=== PATIENT | female | born 1980 | race Hispanic/Latino ===

== ENCOUNTER 2018-02-10 17:48 | Inpatient (IN) | payer OTHER ==
[2018-02-10 17:50] VITALS: BMI 23.0
--- NOTE | 2018-02-10 18:17 | ED PDOC ---
Arrival/HPI - General Chief Complaint: Altered Mental Status Time Seen by Provider: 02/10/18 17:52 Historian: Patient - History of Present Illness Narrative History of Present Illness (Text): 02/10/18 18:00 Zenobia Pisano is a 37 year old female brought in by EMS, whose past medical history includes celiac disease on Prednisone and diabetes on insulin, who presents to the emergency department complaining of a witnessed seizure-like episode prior to arrival. As per patient's [id number], patient was speaking to her when patient suddenly screamed in pain, her hands began to shake, her body went stiff, and then lost consciousness. Patient notes that felt something occurred prior to losing consciousness but is unsure what. Patient notes that she has been feeling depressed after her girlfriend broke up with her one week ago. Patient denies taking any other medication today besides Prednisone and insulin. Patient denies any headache, body aches, fever, chills, urinary symptoms, or any other complaints at this time. Time/Duration: Prior to Arrival Symptom Onset: Sudden Symptom Course: Improving Activities at Onset: Light Context: Home Past Medical History - Provider Review Nursing Documentation Reviewed: Yes - Infectious Disease Hx of Infectious Diseases: None - Endocrine/Metabolic Hx Diabetes Mellitus Type 1: Yes - Gastrointestinal Other/Comment: Celiac dx - Psychiatric Hx Substance Use: Yes - Anesthesia Hx Anesthesia: No Family/Social History - Physician Review Nursing Documentation Reviewed: Yes Family/Social History: No Known Family HX Smoking Status: Heavy Smoker > 10 Cigarettes Daily Hx Alcohol Use: No Hx Substance Use: Yes Allergies/Home Meds Allergies/Adverse Reactions: Allergies levofloxacin [From Levaquin] Allergy (Verified 02/10/18 17:59) RASH Penicillins Allergy (Verified 02/10/18 17:59) RASH Home Medications: Home Meds Medication Instructions Recorded Confirmed No Known Home Med 02/10/18 02/10/18 Review of Systems - Physician Review All systems were reviewed & negative as marked: Yes - Review of Systems Constitutional: absent: Fevers, Night Sweats Eyes: absent: Vision Changes ENT: absent: Hearing Changes Respiratory: absent: SOB Cardiovascular: absent: Chest Pain Gastrointestinal: absent: Abdominal Pain Genitourinary Female: absent: Dysuria Musculoskeletal: absent: Arthralgias Skin: absent: Rash, Pruritis Neurological: Seizure. absent: Headache Endocrine: absent: Diaphoresis Hemo/Lymphatic: absent: Adenopathy Psychiatric: Depression. absent: Anxiety Physical Exam Vital Signs Reviewed: Yes Vital Signs Temp Pulse Resp BP Pulse Ox 02/10/18 21:29 76 18 110/81 98 02/10/18 19:17 98.4 F 100 H 18 105/72 98 - Systems Exam Head: Present: Atraumatic, Normocephalic Pupils: Present: PERRL Extroacular Muscles: Present: EOMI Conjunctiva: Present: Normal Mouth: Present: Moist Mucous Membranes. No: Normal Lips (Dry lips) Neck: Present: Normal Range of Motion Respiratory/Chest: Present: Clear to Auscultation, Good Air Exchange. No: Respiratory Distress, Accessory Muscle Use Cardiovascular: Present: Regular Rate and Rhythm, Normal S1, S2. No: Murmurs Abdomen: Present: Normal Bowel Sounds. No: Tenderness, Distention, Peritoneal Signs Rectal: No: Other (No evidence of incontinence) Back: Present: Normal Inspection Upper Extremity: Present: Normal Inspection. No: Cyanosis, Edema Lower Extremity: Present: Normal Inspection. No: Edema Neurological: Present: GCS=15, CN II-XII Intact, Speech Normal, Motor Func Grossly Intact, Normal Sensory Function, Normal Cerebellar Funct, Norm Deep Tendon Reflexes, Gait Normal, Memory Normal, Normal 2Pt Descrimination Skin: Present: Warm, Dry, Normal Color. No: Rashes Psychiatric: Present: Alert, Oriented x 3, Normal Insight, Normal Concentration Medical Decision Making ED Course and Treatment: 02/10/18 18:19 Impression: 37 year old female complaining of a witnessed seizure-like episode prior to arrival. Differential Diagnosis included but are not limited to: New Onset Seizure Plan: -- EKG -- Chest X-ray -- Head CT w/o contrast -- Blood Culture -- Urinalysis and Urine Culture -- Labs -- Reassess and disposition Progress Notes: EKG: Ordered, reviewed, and independently interpreted the EKG. Rate : 100 BPM Rhythm : NSR Interpretation : No ST-segment elevations or depressions, no T-wave inversions, normal intervals. Comparison : No previous EKG for comparison. 02/10/18 21:31 CT Scan HEAD W/O CONTRAST Exam Date: 02/10/18 IMPRESSION: No acute intracranial abnormality Dictated By: Miri Dawn MD Case discussed with Dr. Argueta, Neurologist, who recommends Keppra IV and an MRI on admission. 02/10/18 21:[address] Mao, house physician, who will admit to the hospitalist service. - Critical Care Critical Care Minutes: 30 minutes - Lab Interpretations Lab Results: 02/10/18 18:30 02/10/18 18:30 Lab Results 02/10/18 19:12: POC Glucose (mg/dL) 107 02/10/18 18:50: Urine Opiates Screen Positive H, Urine Methadone Screen Negative , Ur Barbiturates Screen Negative, Ur Phencyclidine Scrn Negative, Ur Amphetamines Screen Negative, U Benzodiazepines Scrn Positive, U Oth Cocaine Metabols Negative, U Cannabinoids Screen Negative 02/10/18 18:50: Urine Color Yellow, Urine Appearance Clear, Urine pH 6.0, Ur Specific [place] >= 1.030, Urine Protein Trace H, Urine Glucose (UA) 100 H, Urine Ketones Negative, Urine Blood Negative, Urine Nitrate Negative, Urine Bilirubin Negative, Urine Urobilinogen 4.0 H, Ur Leukocyte Esterase Negative, Urine RBC 0 - 2, Urine WBC 0 - 2, Ur Epithelial Cells 1 - 3, Urine Bacteria Small 02/10/18 18:30: Salicylates < 1 L, Acetaminophen < 10.0 L 02/10/18 18:30: Alcohol, Quantitative < 10 02/10/18 18:30: Sodium 138, Potassium 3.6, Chloride 107, Carbon Dioxide 22, Anion Gap 12, BUN 8, Creatinine 0.6 L, Est GFR ( Amer) > 60, Est GFR (Non -Af Amer) > 60, Random Glucose 141 H, Calcium 9.5, Phosphorus 2.7, Magnesium 2.0 , Total Bilirubin 1.4 H, AST 151 H, ALT 84 H, Alkaline Phosphatase 278 H, Total Protein 7.0, Albumin 3.7, Globulin 3.3, Albumin/Globulin Ratio 1.1 02/10/18 18:30: PT 11.6, INR 1.02, APTT 29.3 02/10/18 18:30: WBC 11.7 H, RBC 5.54, Hgb 16.6 H, Hct 47.4, MCV 85.6, MCH 30.0, MCHC 35.0, RDW 14.2, Plt Count 194, MPV 11.6 H, Gran % 76.1 H, Lymph % (Auto) 17.1 L, [place] % (Auto) 5.3, Eos % (Auto) 1.4 L, Baso % (Auto) 0.1, Gran # 8.93 H , Lymph # (Auto) 2.0, [place] # (Auto) 0.6, Eos # (Auto) 0.2, Baso # (Auto) 0.01 I have reviewed the lab results: Yes - RAD Interpretation Radiology Orders: 02/10/18 18:03 HEAD W/O CONTRAST [CT] Stat 02/10/18 18:04 CHEST PORTABLE [RAD] Stat - Medication Orders Current Medication Orders: Levetiracetam 1,000 mg/ Sodium (Chloride) 110 mls @ 440 mls/hr IV ONCE ONE Stop: 02/10/18 21:49 - Scribe Statement The provider has reviewed the documentation as recorded by the Ramanibgracie Norris Provider Scribe Attestation: All medical record entries made by the Scribe were at my direction and personally dictated by me. I have reviewed the chart and agree that the record accurately reflects my personal performance of the history, physical exam, medical decision making, and the department course for this patient. I have also personally directed, reviewed, and agree with the discharge instructions and disposition. Disposition/Present on Arrival - Present on Arrival Any Indicators Present on Arrival: No History of DVT/PE: No History of Uncontrolled Diabetes: No Urinary Catheter: No History of Decub. Ulcer: No History Surgical Site Infection Following: None - Disposition Have Diagnosis and Disposition been Completed?: Yes Diagnosis: Seizure Disposition: HOSPITALIZED Disposition Time: 21:38 Patient Plan: Admission Condition: FAIR Referrals: Vineet Gonzalez, [Primary Care Provider] - Follow up with primary Forms: [employer] (Malay)
[2018-02-10 18:48] LABS: BASO # 0.01 K/mm3 (0.0-2.0); BASO % 0.1 % (0.0-3.0); EOS # 0.2 (0.0-0.7); EOS % 1.4 % (1.5-5.0); GRAN # 8.93 (1.4-6.5); GRAN % 76.1 % (50.0-68.0); HEMOGLOBIN 16.6 g/dL (12.0-16.0); LYMPH % 17.1 % (22.0-35.0); MEAN CELL VOLUME 85.6 fl (80.0-105.0); MEAN PLATELET VOLUME 11.6 fl (7.0-11.0); MONO # 0.6 (0.1-0.6); MONO % 5.3 % (1.0-6.0); RBC 5.54 10^6/uL (3.5-6.1); RED CELL DISTRIBUTION WIDTH 14.2 % (11.5-14.5); WHITE BLOOD COUNT 11.7 10^3/ul (4.5-11.0)
[2018-02-10 18:54] LABS: ALB/GLOB RATIO 1.1 (1.1-1.8); ALBUMIN 3.7 g/dL (3.0-4.8); CALCIUM 9.5 mg/dL (8.4-10.5); GFR AFRICAN-AMERICAN > 60; GFR NON-AFRICAN AMERICAN > 60
[2018-02-10 18:55] LABS: ACETAMINOPHEN < 10.0 ug/ml (10.0-20.0); SALICYLATE < 1 mg/dL (2.0-20.0)
[2018-02-10 19:01] LABS: INR 1.02 (0.93-1.08); PARTIAL THROMBOPLASTIN TIME 29.3 Seconds (25.1-36.5); PROTHROMBIN TIME 11.6 SECONDS (9.4-12.5)
[2018-02-10 19:02] LABS: ALT/SGPT 84 U/L (7-56); AST/SGOT 151 U/L (14-36); BLOOD UREA NITROGEN 8 mg/dL (7-21)
[2018-02-10 19:24] LABS: URINE BILIRUBIN NEGATIVE (NEGATIVE); URINE BLOOD NEGATIVE (NEGATIVE); URINE GLUCOSE (UA) 100 mg/dL (NEGATIVE); URINE LEUKOCYTE ESTERASE NEGATIVE Leu/uL (NEGATIVE); URINE PROTEIN TRACE mg/dL (<30 mg/dL)
[2018-02-10 19:29] LABS: URINE APPEARANCE CLEAR (CLEAR); URINE COLOR YELLOW (YELLOW)
[2018-02-10 19:37] LABS: PHENCYCLIDINE, UR NEGATIVE (NEGATIVE)
[2018-02-10 19:41] LABS: BARBITURATES, UR NEGATIVE (NEGATIVE); BENZODIAZEPINES, UR POSITIVE (NEGATIVE); OPIATES, UR POSITIVE (NEGATIVE)
[2018-02-10 20:08] LABS: URINE BACTERIA SMALL (NEG); URINE RBC 0 - 2 /hpf (0-2); URINE WBC 0 - 2 /hpf (0-6)
--- NOTE | 2018-02-10 21:03 | CT ---
EXAM: CT Head Without Intravenous Contrast EXAM DATE/TIME: 02/10/2018 6:03 PM CLINICAL HISTORY: 37 years old, female; Signs and symptoms; Seziure; Additional info: New onset seizure TECHNIQUE: Axial computed tomography images of the head/brain without intravenous contrast. All CT scans at this facility use one or more dose reduction techniques, viz.: automated exposure control; ma/kV adjustment per patient size (including targeted exams where dose is matched to indication; i.e. head); or iterative reconstruction technique. Coronal and sagittal reformatted images were created and reviewed. COMPARISON: There are no prior studies for comparison. FINDINGS: Brain: Ventricles are normal in size and configuration. There is no midline shift. There are no intra-axial or extra-axial mass lesions or areas of hemorrhage. There are no abnormal fluid collections. Doshi-white differentiation is maintained. Ventricles: See above. Bones: Cranial vault is intact. Soft tissues: unremarkable Sinuses: There is no acute sinusitis. There is a retention cyst/polyp in the right maxillary sinus Orbits: Orbital contents are unremarkable. Ears and mastoids: Middle ears and mastoids are unremarkable IMPRESSION: No acute intracranial abnormality
[2018-02-10] MEDS ORDERED: levETIRAcetam 1,000 MG in Sodium Chloride 0.9% 100 ML IV ONE (21:35)
--- NOTE | 2018-02-10 22:52 | CP.PCM.HP ---
<Elder Gomez - Last Filed: 02/11/18 00:48> History of Present Illness - History of Present Illness History of Present Illness: Elder Gomez PGY1 H&P Note for Hospitalist Service cc: seizure Ms Pisano is a 37yo F with a PMH of celiac disease and DM who was brought into ED accompanied by [id number] who states that the patient had a seizure episode earlier today. The patient doesn't recall any of the events, and states that she went to sleep last night and awoke surrounded by EMS and her mother-in- law stating that she had a seizure. The patient denies any loss of bowel/ urinary control, foaming at the mouth or any tongue biting. she states that she was recently discharged on Saturday (2 days ago) from [facility] for bile duct issues and had received Dilaudid there for her pain; she states that she also had fevers/chills and felt sick during that hospitalization. The patient states that she had a prior seizure as a reaction to Levaquin. patient denies headaches, changes in vision, dizziness, chest pain, shortness of breath , abdominal pain, n/v/d, gait instability. 12- pt ROS was reviewed and is otherwise unremarkable. PMD: Dr. Huang Lockhart?, [place] PMH: as above PSH: cholecystectomy, SBO, tonsillectomy Meds: as per MAR Allergies: Levaquin and PCN SHx: +tobacco 1pk/d for 20 yrs, denies IV drug use, illicit substance abuse, ETOH; lives w/ [id number] FHx: no hx of seizures Present on Admission - Present on Admission Any Indicators Present on Admission: No Review of Systems - Review of Systems All systems: reviewed and no additional remarkable complaints except (as per HPI ) Past Patient History - Infectious Disease Hx of Infectious Diseases: None - Past Social History Smoking Status: Heavy Smoker > 10 Cigarettes Daily Alcohol: None Drugs: Prescription medications Home Situation {Lives}: With Family - CARDIAC Hx Cardiac Disorders: No - PULMONARY Hx Respiratory Disorders: No - NEUROLOGICAL Hx Seizures: Yes - HEENT Hx HEENT Problems: No - RENAL Hx Chronic Kidney Disease: No - ENDOCRINE/METABOLIC Hx Diabetes Mellitus Type 1: Yes - HEMATOLOGICAL/ONCOLOGICAL Hx Blood Disorders: No - INTEGUMENTARY Hx Dermatological Problems: No - MUSCULOSKELETAL/RHEUMATOLOGICAL Hx Musculoskeletal Disorders: No - GASTROINTESTINAL Hx Gastrointestinal Disorders: Yes (celiac) Other/Comment: Celiac dx - GENITOURINARY/GYNECOLOGICAL Hx Genitourinary Disorders: No - PSYCHIATRIC Hx Psychophysiologic Disorder: No Hx Substance Use: No - SURGICAL HISTORY Hx Surgeries: Yes Hx Cholecystectomy: Yes Hx Tonsillectomy: Yes - ANESTHESIA Hx Anesthesia: No Meds Allergies/Adverse Reactions: Allergies Allergy/AdvReac Type Severity Reaction Status Date / Time levofloxacin [From Levaquin] Allergy RASH Verified 02/10/18 17:59 Penicillins Allergy RASH Verified 02/10/18 17:59 Physical Exam - Constitutional Appears: Well, Non-toxic, No Acute Distress Additional comments: resting comfortably on bed, asleep and required arousal but easily arousable seems annoyed by the questions - Head Exam Head Exam: ATRAUMATIC, NORMAL INSPECTION - Eye Exam Eye Exam: EOMI, Normal appearance, PERRL Pupil Exam: Mydriatic - ENT Exam ENT Exam: Mucous Membranes Moist, Normal Exam - Neck Exam Neck exam: Positive for: Normal Inspection - Respiratory Exam Respiratory Exam: Clear to Auscultation Bilateral, NORMAL BREATHING PATTERN. absent: Rhonchi, Wheezes - Cardiovascular Exam Cardiovascular Exam: RRR, +S1, +S2 - GI/Abdominal Exam GI & Abdominal Exam: Normal Bowel Sounds, Soft. absent: Distended, Tenderness - Extremities Exam Extremities exam: Positive for: normal inspection - Back Exam Back exam: NORMAL INSPECTION - Neurological Exam Neurological exam: Alert, CN II-XII Intact, Oriented x3 - Psychiatric Exam Psychiatric exam: Flat Affect - Skin Skin Exam: Normal Color, Warm Results - Vital Signs Recent Vital Signs: Last Vital Signs Temp 98.4 F 02/10/18 19:17 Pulse 76 02/10/18 21:29 Resp 18 02/10/18 21:29 BP 110/81 02/10/18 21:29 Pulse Ox 98 02/10/18 21:29 - Labs Result Diagrams: 02/10/18 18:30 02/10/18 18:30 Assessment & Plan - Assessment and Plan (Free Text) Assessment: 37yo F with a PMH of celiac disease and DM who was brought into ED accompanied by [id number] who states that the patient had a seizure episode earlier today Plan: 1. Seizure - Neuro was contacted in ED and recommended MRI brain and Keppra - cont Keppra - Ativan PRN breakthrough seizures - brain MRI ordered - Head CT done and was unremarkable - EEG ordered - passed nurse swallow eval - seizure precautions - fall risk - neurochecks q4 - PT/OT eval - TSH and Mg/Phos ordered - UDS positive for opiates and benzos - blood and urine cultures ordered - EKG noted and was NSR @ 100bpm 2. Hx DM - cont ISS - Accuchecks ACHS - HHD diet 3. Hx celiac disease - cont gluten restricted diet 4. Elevated LFTs - abdomen US ordered - hepatitis panel ordered 5. Hx tobacco use - nicotine patch PTX/ SCDs for GI/DVT ppx HHD Patient was seen, examined and discussed with attending, Dr. Mayco Gomez PGY1 <Fausto Mao - Last Filed: 02/11/18 03:03> Results - Vital Signs Recent Vital Signs: Last Vital Signs Temp 98.9 F 02/11/18 00:15 Pulse 73 02/11/18 02:00 Resp 18 02/11/18 00:15 BP 97/65 L 02/11/18 00:15 Pulse Ox 98 02/10/18 23:15 - Labs Result Diagrams: 02/10/18 18:30 02/10/18 18:30 Attending/Attestation - Attestation I have personally seen and examined this patient.: Yes I have fully participated in the care of the patient.: Yes I have reviewed all pertinent clinical information: Yes Notes (Text): 02/11/18 03:02 Patient was seen when she was in bed # 6 in the ER. Medical record was reviewed. Agree with history, physical examination, assessment and plan. Following are the impressions. New onset seizure. NIDDM. History Celiac disease. Elevated LFT's. History of tobacco use. Leukocytosis. Hyperglycemia. Altered mental status. Cholecystectomy. Surgery for SBO. Tonsillectomy. Allergy to PCN. Allergy to Levaquin. Tobacco dependence. History substance abuse. Positive urine drug screening-Opiates. Family history of cervical cancer.-Aunt. Elevated LFT's.
[2018-02-11] MEDS: Pantoprazole 40 mg EC Tab PO SCH (05:19)
[2018-02-11] MEDS: Insulin Lispro (humaLOG) MEDIUM Coverage SC SCH ×3 (08:04→17:47)
[2018-02-11] MEDS: levETIRAcetam 1,000 MG in Sodium Chloride 0.9% 100 ML IV SCH ×2 (09:04→22:53)
--- NOTE | 2018-02-11 09:24 | RAD ---
HISTORY: new onset seizure COMPARISON: No prior. FINDINGS: LUNGS: No active pulmonary disease. PLEURA: No significant pleural effusion identified, no pneumothorax apparent. CARDIOVASCULAR: Normal. OSSEOUS STRUCTURES: No significant abnormalities. VISUALIZED UPPER ABDOMEN: Cholecystectomy clips inferred- right upper quadrant. OTHER FINDINGS: None. IMPRESSION: No active disease.
--- NOTE | 2018-02-11 10:14 | CARD ---
APPROVED REPORT EKG Measurement Heart [id number] <Conclusion> Normal sinus rhythm Normal ECG
--- NOTE | 2018-02-11 10:21 | US ---
HISTORY: elevated LFTs COMPARISON: None. TECHNIQUE: Sonographic evaluation of the abdomen. FINDINGS: LIVER: Measures 16 cm. Normal echogenicity of the liver parenchyma. A complex cystic mass probably a septated cyst in the left hepatic lobe is suggested measuring 1.5 x 1.1 x 1.3 cm. No mass. No intrahepatic bile duct dilatation. GALLBLADDER: Not identified. Correlate with recent food ingestion. Technologist is noted the exam is limited given patient's pain and moving state COMMON BILE DUCT: Measures 1 point sick mm. No stones. No dilatation. PANCREAS: Unremarkable as visualized. No mass. No ductal dilatation. RIGHT KIDNEY: Measures 10.5 x 5.0 x 5.2cm. Normal echogenicity. No calculus, mass, or hydronephrosis. LEFT KIDNEY: Measures 11.8 x 5.3 x 4 point sickcm. Normal echogenicity. No calculus, mass, or hydronephrosis. SPLEEN: Normal in size and contour. No mass. AORTA: No aneurysmal dilatation. IVC: Unremarkable. OTHER FINDINGS: None. IMPRESSION: Nonvisualized gallbladder. Correlate with any recent food ingestion. Technologist has noted that the patient was in pain moving during the exam these are the apparently the best possible images obtainable at this setting. Consider rechecking the gallbladder at another time - when fasting 1.5 cm hepatic minimally complicated cyst -a septated cyst is compatible with this
--- NOTE | 2018-02-11 10:43 | CT ---
PROCEDURE: CT HEAD WITHOUT CONTRAST. HISTORY: new onset seizure COMPARISON: None available. TECHNIQUE: Axial computed tomography images were obtained through the head/brain without intravenous contrast. Radiation dose: Total exam DLP = 770 mGy-cm. This CT exam was performed using one or more of the following dose reduction techniques: Automated exposure control, adjustment of the mA and/or kV according to patient size, and/or use of iterative reconstruction technique. FINDINGS: HEMORRHAGE: No intracranial hemorrhage. BRAIN: No mass effect or edema. No atrophy or chronic microvascular ischemic changes. VENTRICLES: Unremarkable. No hydrocephalus. CALVARIUM: Unremarkable. PARANASAL SINUSES: Unremarkable as visualized. No significant inflammatory changes. MASTOID AIR CELLS: Unremarkable as visualized. No inflammatory changes. OTHER FINDINGS: None. IMPRESSION: No acute finding
--- NOTE | 2018-02-11 12:57 | CP.PCM.CON ---
History of Present Illness - History of Present Illness History of Present Illness: 37 yr old woman with pmh of celiac disease, htn, s/p cholecystectomy who presented to the Er with her mother in law after having a seizure. The patient is amnestic for the event, and last memory is of falling asleep, and then woke surrounded by EMS, being told that she had a seizure. She was discharged several days ago from [facility] [place] for bile duct issues, with prior seizure secondary to levoquin. PMD: Dr.Waheed Lockhart PMH: as above PSH: cholecystectomy, SBO, tonsillectomy Meds: as per MAR Allergies: Levaquin and PCN SHx: +tobacco 1pk/d for 20 yrs, denies IV drug use, illicit substance abuse, ETOH; lives w/ [id number] FHx: no hx of epilepsy On exam: Normal neurological examination. Normal gait, no deficits. Past Patient History - Infectious Disease Hx of Infectious Diseases: None - Past Social History Smoking Status: Heavy Smoker > 10 Cigarettes Daily Alcohol: None Drugs: Prescription medications Home Situation {Lives}: With Family - CARDIAC Hx Cardiac Disorders: No - PULMONARY Hx Respiratory Disorders: No - NEUROLOGICAL Hx Seizures: Yes - HEENT Hx HEENT Problems: No - RENAL Hx Chronic Kidney Disease: No - ENDOCRINE/METABOLIC Hx Diabetes Mellitus Type 1: Yes - HEMATOLOGICAL/ONCOLOGICAL Hx Blood Disorders: No - INTEGUMENTARY Hx Dermatological Problems: No - MUSCULOSKELETAL/RHEUMATOLOGICAL Hx Musculoskeletal Disorders: No - GASTROINTESTINAL Hx Gastrointestinal Disorders: Yes (celiac) Other/Comment: Celiac dx - GENITOURINARY/GYNECOLOGICAL Hx Genitourinary Disorders: No - PSYCHIATRIC Hx Psychophysiologic Disorder: No Hx Substance Use: No - SURGICAL HISTORY Hx Surgeries: Yes Hx Cholecystectomy: Yes Hx Tonsillectomy: Yes - ANESTHESIA Hx Anesthesia: No Meds Allergies/Adverse Reactions: Allergies Allergy/AdvReac Type Severity Reaction Status Date / Time levofloxacin [From Levaquin] Allergy RASH Verified 02/10/18 17:59 Penicillins Allergy RASH Verified 02/10/18 17:59 - Medications Medications: Current Medications Levetiracetam 1,000 mg/ Sodium (Chloride) 110 mls @ 460 mls/hr IV Q12 SERA Last Admin: 02/11/18 09:04 Dose: Not Given Insulin Human Lispro (Humalog Med) 0 units SC ACHS SERA PRN Reason: Protocol Last Admin: 02/11/18 08:04 Dose: Not Given Lorazepam (Ativan) 2 mg IVP Q6H PRN; Protocol PRN Reason: Anxiety Last Admin: 02/11/18 09:00 Dose: 2 mg Nicotine (Nicoderm Cq) 1 patch TD DAILY SERA Last Admin: 02/11/18 09:00 Dose: 1 patch Pantoprazole Sodium (Protonix Ec Tab) 40 mg PO 0600 SERA Last Admin: 02/11/18 05:19 Dose: 40 mg Results - Vital Signs Recent Vital Signs: Last Vital Signs Temp 98.8 F 02/11/18 06:00 Pulse 79 02/11/18 06:00 Resp 20 02/11/18 06:00 BP 99/63 L 02/11/18 06:00 Pulse Ox 97 02/11/18 06:00 - Labs Result Diagrams: 02/10/18 18:30 02/10/18 18:30 Labs: Laboratory Results - last 24 hr 02/11/18 07:11 POC Glucose (mg/dL) 111 H - Imaging and Cardiology CT scan - head Status: Image reviewed by me, Report reviewed by me (normal ct head ) Assessment & Plan - Assessment and Plan (Free Text) Assessment: 37 yr old woman with epilepsy, 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 She is unable to tell me if there was an aura or a family history of epilepsy. Appreciate medical team assistance with gi issues. Plan: 1. EEG 2. Cotninue keppra at 500 mg bid. 3. MRI Brain with and without genesis. Thank you for this consult. DR. Kendall MD, DPN
[2018-02-11 13:11] LABS: MEAN CELL VOLUME 86.7 fl (80.0-105.0); MEAN CORPUSCULAR HEMOGLOBIN 29.7 pg (25.0-35.0); MEAN CORPUSCULAR HGB CONC 34.2 g/dl (31.0-37.0); MEAN PLATELET VOLUME 11.8 fl (7.0-11.0); PLATELET COUNT 331 10^3/uL (120.0-450.0); RED CELL DISTRIBUTION WIDTH 14.3 % (11.5-14.5); WHITE BLOOD COUNT 21.9 10^3/ul (4.5-11.0)
[2018-02-11 13:16] LABS: HEMOGLOBIN 18.1 g/dL (12.0-16.0)
[2018-02-11 13:35] LABS: ALB/GLOB RATIO 1.2 (1.1-1.8); ALBUMIN 4.5 g/dL (3.0-4.8); ALT/SGPT 99 U/L (7-56); AST/SGOT 85 U/L (14-36); BLOOD UREA NITROGEN 9 mg/dL (7-21); CALCIUM 10.2 mg/dL (8.4-10.5); GFR AFRICAN-AMERICAN > 60; GFR NON-AFRICAN AMERICAN > 60
[2018-02-11] MEDS ORDERED: Sodium Chloride 0.9% 1,000 ML IV SCH (13:45)
--- NOTE | 2018-02-11 14:55 | CP.PCM.PN ---
<DonteWisam Bobby - Last Filed: 02/11/18 14:52> Subjective - Date & Time of Evaluation Date of Evaluation: 02/11/18 Time of Evaluation: 14:52 - Subjective Subjective: Medicine progress note for Dr. Abarca Patient seen and examined at bedside. During first interview, patient was able to adequately answer questions and stated that she was recently seen at [facility] for right upper quadrant abdominal pain and presented today for what her family thought was a seizure. She stated that she was doing fine at the time I saw her and that she did not feel any confusion or other post-ictal symptoms. Upon interview with Dr. Abarca, patient's friends had been in the room and she was much more somnolent and groggy and was unable to answer questions. She stated that she had not had any substances, but her behavior was much changed from earlier on. Objective - Vital Signs/Intake and Output Vital Signs (last 24 hours): Temp Pulse Resp BP Pulse Ox 98.8 F 95 H 20 99/63 L 97 02/11/18 06:00 02/11/18 12:00 02/11/18 06:00 02/11/18 06:00 02/11/18 06:00 Intake and Output: 02/11/18 02/11/18 06:59 18:59 Intake Total 60 240 Output Total 350 Balance -290 240 - Medications Medications: Current Medications Levetiracetam 1,000 mg/ Sodium (Chloride) 110 mls @ 460 mls/hr IV Q12 [facility] Last Admin: 02/11/18 09:04 Dose: Not Given Sodium Chloride (Sodium Chloride 0.9%) 1,000 mls @ 150 mls/hr IV .Q6H40M [facility] Insulin Human Lispro (Humalog Med) 0 units SC ACHS [facility] PRN Reason: Protocol Last Admin: 02/11/18 12:51 Dose: Not Given Nicotine (Nicoderm Cq) 1 patch TD DAILY [facility] Last Admin: 02/11/18 09:00 Dose: 1 patch Pantoprazole Sodium (Protonix Ec Tab) 40 mg PO 0600 [facility] Last Admin: 02/11/18 05:19 Dose: 40 mg - Labs Labs: 02/11/18 13:00 02/11/18 13:00 PT 11.6 SECONDS (9.4-12.5) 02/10/18 18:30 INR 1.02 (0.93-1.08) 02/10/18 18:30 APTT 29.3 Seconds (25.1-36.5) 02/10/18 18:30 - Constitutional Appears: Well - Head Exam Head Exam: ATRAUMATIC, NORMAL INSPECTION, NORMOCEPHALIC - Eye Exam Eye Exam: EOMI, Normal appearance, PERRL Pupil Exam: NORMAL ACCOMODATION, PERRL - ENT Exam ENT Exam: Mucous Membranes Moist, Normal Exam - Neck Exam Neck Exam: Full ROM, Normal Inspection. absent: Lymphadenopathy - Respiratory Exam Respiratory Exam: Clear to Ausculation Bilateral, NORMAL BREATHING PATTERN - Cardiovascular Exam Cardiovascular Exam: REGULAR RHYTHM, +S1, +S2. absent: Murmur - GI/Abdominal Exam GI & Abdominal Exam: Soft, Normal Bowel Sounds. absent: Tenderness - Extremities Exam Extremities Exam: Full ROM, Normal Capillary Refill, Normal Inspection. absent : Joint Swelling, Pedal Edema - Back Exam Back Exam: NORMAL INSPECTION - Neurological Exam Neurological Exam: Alert, Awake, CN II-XII Intact, Normal Gait, Oriented x3 - Psychiatric Exam Psychiatric exam: Normal Affect, Normal Mood - Skin Skin Exam: Dry, Intact, Normal Color, Warm Assessment and Plan - Assessment and Plan (Free Text) Assessment: Assessment and Plan 37 year old female with medical history of celiac disease and DM who was brought into ED accompanied by [id number] who states that the patient had a seizure episode earlier today. Patient also has multiple lab abnormalities Seizure - Head CT: Unremarkable - MRI Brain with and without contrast: Pending - EEG: Pending - Swallow eval: Passed - TSH/Mg/Phos: 1.69/2.0/2.7 - Blood and Urine Cultures: Pending - Neurology: Dr. Argueta * Continue Stephan, get MRI Brain with and without contrast - Seizure precautions - Fall risk - Neurochecks q4 - PT/OT eval - Ativan discontinued Diabetes - RISS Medium - Accuchecks ACHS - Heart Healthy and Moderate CHO diet Elevated LFTs - Abdomen Ultrasound ordered: 1.5 cm hepatic minimally complicated cyst; Gall Bladder not seen - Hepatitis panel ordered Pending - GI Consult for LFT elevation, ALP elevation, urobilinogen elevation History Celiac Disease - Contine gluten restricted diet History tobacco use - Nicotine patch GI/DVT Prophylaxis - Protonix - SCD's <Scott Abarca - Last Filed: 02/12/18 11:57> Objective - Vital Signs/Intake and Output Vital Signs (last 24 hours): Temp Pulse Resp BP Pulse Ox 98.8 F 90 20 121/79 95 02/12/18 11:49 02/12/18 11:49 02/12/18 11:49 02/12/18 11:49 02/12/18 06:00 Intake and Output: 02/12/18 02/12/18 06:59 18:59 Intake Total 2400 Balance 2400 - Medications Medications: Current Medications Levetiracetam 1,000 mg/ Sodium (Chloride) 110 mls @ 460 mls/hr IV Q12 [facility] Last Admin: 02/12/18 09:28 Dose: 460 mls/hr Sodium Chloride (Sodium Chloride 0.9%) 1,000 mls @ 150 mls/hr IV .Q6H40M [facility] Last Admin: 02/12/18 05:49 Dose: 150 mls/hr Insulin Human Lispro (Humalog Med) 0 units SC ACHS [facility] PRN Reason: Protocol Last Admin: 02/12/18 11:42 Dose: 3 units Nicotine (Nicoderm Cq) 1 patch TD DAILY [facility] Last Admin: 02/12/18 09:28 Dose: 1 patch Pantoprazole Sodium (Protonix Ec Tab) 40 mg PO 0600 [facility] Last Admin: 02/12/18 05:48 Dose: 40 mg - Labs Labs: 02/12/18 06:00 02/12/18 06:00 PT 11.0 SECONDS (9.4-12.5) 02/12/18 06:00 INR 0.96 (0.93-1.08) 02/12/18 06:00 APTT 29.3 Seconds (25.1-36.5) 02/10/18 18:30 Attending/Attestation - Attestation I have personally seen and examined this patient.: Yes I have fully participated in the care of the patient.: Yes I have reviewed all pertinent clinical information, including history, physical exam and plan: Yes Notes (Text): 02/12/18 11:54 Attending note; Patient seen and examined with resident. Patient is a 87-year-old female with a past medical history of diabetes, hypertension, drug abuse is admitted with mental status and possible seizure disorder. CT head is negative. Patient refused MRI and EEG this morning. Neurology evaluation appreciated. Patient was using drugs in the bathroom as per nurse. We will screen the visitors. Monitor patient closely. Elevated LFTs; improving slowly. Hepatitis profile and HIV ordered. Patient had recent MRI done at [facility]. We will get medical records. GI evaluation appreciated. Follow-up patient closely. Upon discharge the patient will follow-up with PMD in [place].
[2018-02-11] MEDS: Sodium Chloride 0.9% 1,000 ML IV SCH (15:05)
--- NOTE | 2018-02-11 15:45 | CP.PCM.CON ---
<Norma Thao - Last Filed: 02/11/18 16:21> History of Present Illness - History of Present Illness History of Present Illness: GI Fellow PGY4 Consult Note This is a 37yo F with a PMHx of celiac disease, HTN, DM, Drug induced seizure with levaquin who was brought into ED after a witnessed seizure by family.This is her second episode, once prior after taking levaquin. The patient denies any loss of bowel/urinary control, foaming at the mouth or any tongue biting. She states that she was recently discharged 2 days ago from [facility] for bile duct issues with an abnormal MRCP and needed further endoscopic evaluation but was not able to get it. She reports RUQ pain for 1 week. No hx of liver disease or elevated LFTs, no jaundice. Patient denies headaches, changes in vision, dizziness, chest pain, shortness of breath, abdominal pain, n /v/d, gait instability. ROS: 12- pt ROS was reviewed and is otherwise unremarkable PMH: as above PSH: cholecystectomy, SBO, tonsillectomy SHx: +tobacco 1pk/d for 20 yrs, denies IV drug use, illicit substance abuse, ETOH; lives w/ [id number] FHx: no hx of seizures Past Patient History - Infectious Disease Hx of Infectious Diseases: None - Past Social History Smoking Status: Heavy Smoker > 10 Cigarettes Daily Alcohol: None Drugs: Prescription medications Home Situation {Lives}: With Family - CARDIAC Hx Cardiac Disorders: No - PULMONARY Hx Respiratory Disorders: No - NEUROLOGICAL Hx Seizures: Yes - HEENT Hx HEENT Problems: No - RENAL Hx Chronic Kidney Disease: No - ENDOCRINE/METABOLIC Hx Diabetes Mellitus Type 1: Yes - HEMATOLOGICAL/ONCOLOGICAL Hx Blood Disorders: No - INTEGUMENTARY Hx Dermatological Problems: No - MUSCULOSKELETAL/RHEUMATOLOGICAL Hx Musculoskeletal Disorders: No - GASTROINTESTINAL Hx Gastrointestinal Disorders: Yes (celiac) Other/Comment: Celiac dx - GENITOURINARY/GYNECOLOGICAL Hx Genitourinary Disorders: No - PSYCHIATRIC Hx Psychophysiologic Disorder: No Hx Substance Use: No - SURGICAL HISTORY Hx Surgeries: Yes Hx Cholecystectomy: Yes Hx Tonsillectomy: Yes - ANESTHESIA Hx Anesthesia: No Meds Allergies/Adverse Reactions: Allergies Allergy/AdvReac Type Severity Reaction Status Date / Time levofloxacin [From Levaquin] Allergy RASH Verified 02/10/18 17:59 Penicillins Allergy RASH Verified 02/10/18 17:59 - Medications Medications: Current Medications Levetiracetam 1,000 mg/ Sodium (Chloride) 110 mls @ 460 mls/hr IV Q12 [facility] Last Admin: 02/11/18 09:04 Dose: Not Given Sodium Chloride (Sodium Chloride 0.9%) 1,000 mls @ 150 mls/hr IV .Q6H40M [facility] Last Admin: 02/11/18 15:05 Dose: 150 mls/hr Insulin Human Lispro (Humalog Med) 0 units SC ACHS [facility] PRN Reason: Protocol Last Admin: 02/11/18 12:51 Dose: Not Given Nicotine (Nicoderm Cq) 1 patch TD DAILY [facility] Last Admin: 02/11/18 09:00 Dose: 1 patch Pantoprazole Sodium (Protonix Ec Tab) 40 mg PO 0600 [facility] Last Admin: 02/11/18 05:19 Dose: 40 mg Physical Exam - Constitutional Appears: Non-toxic, No Acute Distress, Older Than Stated Age - Head Exam Head Exam: ATRAUMATIC, NORMAL INSPECTION, NORMOCEPHALIC - Eye Exam Eye Exam: EOMI, PERRL - ENT Exam ENT Exam: Mucous Membranes Moist - Neck Exam Neck exam: Positive for: Normal Inspection - Respiratory Exam Respiratory Exam: Clear to Auscultation Bilateral, NORMAL BREATHING PATTERN - Cardiovascular Exam Cardiovascular Exam: REGULAR RHYTHM, +S1, +S2 - GI/Abdominal Exam GI & Abdominal Exam: Normal Bowel Sounds, Soft. absent: Distended, Guarding, Organomegaly, Rigid, Tenderness - Rectal Exam Rectal Exam: Deferred - Extremities Exam Extremities exam: Positive for: full ROM, normal inspection. Negative for: pedal edema - Neurological Exam Neurological exam: Alert, Oriented x3 - Psychiatric Exam Psychiatric exam: Normal Affect, Normal Mood - Skin Skin Exam: Dry, Intact, Normal Color, Warm Results - Vital Signs Recent Vital Signs: Last Vital Signs Temp 98.8 F 02/11/18 06:00 Pulse 95 H 02/11/18 12:00 Resp 20 02/11/18 06:00 BP 99/63 L 02/11/18 06:00 Pulse Ox 97 02/11/18 06:00 - Labs Result Diagrams: 02/11/18 13:00 02/11/18 13:00 Labs: Laboratory Results - last 24 hr 02/11/18 02/11/1802/11/18 07:11 13:00 13:00 WBC 21.9 H D RBC 6.10 Hgb 18.1 H* Hct 52.9 H MCV 86.7 MCH 29.7 MCHC 34.2 RDW 14.3 Plt Count 331 MPV 11.8 H Retic Count 1.82 H Sodium 143 Potassium 3.5 L Chloride 107 Carbon Dioxide 22 Anion Gap 17 BUN 9 Creatinine 0.9 Est GFR ( Amer) > 60 Est GFR (Non-Af Amer) > 60 POC Glucose (mg/dL) 111 H Random Glucose 156 H Calcium 10.2 Total Bilirubin 1.8 H AST 85 H D ALT 99 H Alkaline Phosphatase 325 H Total Protein 8.3 Albumin 4.5 Globulin 3.8 Albumin/Globulin Ratio 1.2 TSH 3rd Generation 02/11/18 13:00 WBC RBC Hgb Hct MCV MCH MCHC RDW Plt Count MPV Retic Count Sodium Potassium Chloride Carbon Dioxide Anion Gap BUN Creatinine Est GFR ( Amer) Est GFR (Non-Af Amer) POC Glucose (mg/dL) Random Glucose Calcium Total Bilirubin AST ALT Alkaline Phosphatase Total Protein Albumin Globulin Albumin/Globulin Ratio TSH 3rd Generation 1.69 Assessment & Plan - Assessment and Plan (Free Text) Assessment: This is a 37yF presenting for a witnessed seizure. 1. Elevated LFTs 2. Dilated CBD 3. Seizure 4. Hx of polysubstance abuse Plan: -Continue supportive care -Neuro workup by primary team -Elevated LFT's may be multifactorial with hx of cholecystectomy and chronic pain medication, secondary to seizure activity -Will request primary team to get records of MRCP and labs, no stone on US -Monitor LFTs and INR -Avoid narcotics -Autoimmune and hepatitis serologies pending -Will continue to follow [facility] <Alexey Maciel - Last Filed: 02/11/18 19:25> Meds - Medications Medications: Current Medications Levetiracetam 1,000 mg/ Sodium (Chloride) 110 mls @ 460 mls/hr IV Q12 [facility] Last Admin: 02/11/18 09:04 Dose: Not Given Sodium Chloride (Sodium Chloride 0.9%) 1,000 mls @ 150 mls/hr IV .Q6H40M [facility] Last Admin: 02/11/18 15:05 Dose: 150 mls/hr Insulin Human Lispro (Humalog Med) 0 units SC ACHS [facility] PRN Reason: Protocol Last Admin: 02/11/18 17:47 Dose: Not Given Nicotine (Nicoderm Cq) 1 patch TD DAILY [facility] Last Admin: 02/11/18 09:00 Dose: 1 patch Pantoprazole Sodium (Protonix Ec Tab) 40 mg PO 0600 [facility] Last Admin: 02/11/18 05:19 Dose: 40 mg Results - Vital Signs Recent Vital Signs: Last Vital Signs Temp 99.5 F 02/11/18 17:43 Pulse 110 H 02/11/18 18:00 Resp 20 02/11/18 17:43 BP 105/79 02/11/18 17:43 Pulse Ox 97 02/11/18 06:00 - Labs Result Diagrams: 02/11/18 13:00 02/11/18 13:00 Labs: Laboratory Results - last 24 hr 02/11/18 02/11/18 02/11/18 07:11 11:08 13:00 WBC 21.9 H D RBC 6.10 Hgb 18.1 H* Hct 52.9 H MCV 86.7 MCH 29.7 MCHC 34.2 RDW 14.3 Plt Count 331 MPV 11.8 H Retic Count 1.82 H Sodium Potassium Chloride Carbon Dioxide Anion Gap BUN Creatinine Est GFR ( Amer) Est GFR (Non-Af Amer) POC Glucose (mg/dL) 111 H 123 H Random Glucose Calcium Total Bilirubin AST ALT Alkaline Phosphatase Total Protein Albumin Globulin Albumin/Globulin Ratio TSH 3rd Generation Hepatitis A IgM Ab Hep Bs Antigen Hep B Core IgM Ab Hepatitis C Antibody 02/11/18 02/11/18 02/11/18 13:00 13:00 13:00 WBC RBC Hgb Hct MCV MCH MCHC RDW Plt Count MPV Retic Count Sodium 143 Potassium 3.5 L Chloride 107 Carbon Dioxide 22 Anion Gap 17 BUN 9 Creatinine 0.9 Est GFR ( Amer) > 60 Est GFR (Non-Af Amer) > 60 POC Glucose (mg/dL) Random Glucose 156 H Calcium 10.2 Total Bilirubin 1.8 H AST 85 H D ALT 99 H Alkaline Phosphatase 325 H Total Protein 8.3 Albumin 4.5 Globulin 3.8 Albumin/Globulin Ratio 1.2 TSH 3rd Generation 1.69 Hepatitis A IgM Ab Negative Hep Bs Antigen Negative Hep B Core IgM Ab Negative Hepatitis C Antibody Negative 03/20/18 15:45 WBC RBC Hgb Hct MCV MCH MCHC RDW Plt Count MPV Retic Count Sodium Potassium Chloride Carbon Dioxide Anion Gap BUN Creatinine Est GFR ( Amer) Est GFR (Non-Af Amer) POC Glucose (mg/dL) 101 Random Glucose Calcium Total Bilirubin AST ALT Alkaline Phosphatase Total Protein Albumin Globulin Albumin/Globulin Ratio TSH 3rd Generation Hepatitis A IgM Ab Hep Bs Antigen Hep B Core IgM Ab Hepatitis C Antibody Attending/Attestation - Attestation I have personally seen and examined this patient.: Yes I have fully participated in the care of the patient.: Yes I have reviewed all pertinent clinical information: Yes Notes (Text): 02/11/18 19:23 37 year old female with h/o heroin abuse, h/o cholecystectomy admitted after seizure, also with chronic RUQ pain, dilated bile duct, and elevated lfts. Had recent MRCP, but result unavailable. Obtain MRCP result. Send workup for chronic liver disease as above. Dilated CBD may be related to post cholecystectomy state and opiate abuse, but need to r/o choledocholithiasis.
[2018-02-11 16:52] LABS: HEPATITIS B SURFACE AG Negative (NEGATIVE)
[2018-02-11 16:58] LABS: HEPATITIS A IGM NEGATIVE (NEGATIVE); HEPATITIS B CORE AB NEGATIVE (NEGATIVE)
[2018-02-11 17:10] LABS: HEPATITIS C ANTIBODY NEGATIVE (NEGATIVE)
[2018-02-12] MEDS: Insulin Lispro (humaLOG) MEDIUM Coverage SC SCH ×5 (00:10→23:35)
[2018-02-12] MEDS: Pantoprazole 40 mg EC Tab PO SCH (05:48)
[2018-02-12] MEDS: Sodium Chloride 0.9% 1,000 ML IV SCH ×3 (05:49→19:20)
[2018-02-12 06:24] LABS: MEAN CELL VOLUME 88.4 fl (80.0-105.0); MEAN CORPUSCULAR HEMOGLOBIN 29.3 pg (25.0-35.0); MEAN CORPUSCULAR HGB CONC 33.2 g/dl (31.0-37.0); MEAN PLATELET VOLUME 11.9 fl (7.0-11.0); RBC 4.91 10^6/uL (3.5-6.1); RED CELL DISTRIBUTION WIDTH 14.4 % (11.5-14.5); WHITE BLOOD COUNT 10.1 10^3/ul (4.5-11.0)
[2018-02-12 06:36] LABS: IRON 83 ug/dL (45-180)
[2018-02-12 06:38] LABS: HEMOGLOBIN 14.4 g/dL (12.0-16.0)
[2018-02-12 06:42] LABS: ALB/GLOB RATIO 1.1 (1.1-1.8); ALT/SGPT 65 U/L (7-56); AST/SGOT 66 U/L (14-36); BLOOD UREA NITROGEN 9 mg/dL (7-21); CALCIUM 8.9 mg/dL (8.4-10.5); GFR AFRICAN-AMERICAN > 60; GFR NON-AFRICAN AMERICAN > 60
[2018-02-12 06:44] LABS: INR 0.96 (0.93-1.08)
[2018-02-12 06:47] VITALS: RESP 20
[2018-02-12 06:51] LABS: % IRON SATURATION 33 % (20-55); TOTAL IRON BINDING CAPACITY 250 ug/dL (265-497)
[2018-02-12] MEDS ORDERED: Potassium Chloride 20 mEq ER Tab PO ONE (07:42)
[2018-02-12] MEDS: levETIRAcetam 1,000 MG in Sodium Chloride 0.9% 100 ML IV SCH ×2 (09:28→21:49)
--- NOTE | 2018-02-12 09:36 | CP.PCM.PN ---
<Master,Norma - Last Filed: 02/12/18 10:40> Subjective - Date & Time of Evaluation Date of Evaluation: 02/12/18 Time of Evaluation: 07:00 - Subjective Subjective: GI Fellow PGY4 Progress Note Pt seen and evaluated at bedside, pt doing well with no more seizures. Tolerating diet with mild RUQ pain. ROS: A 12pt ROS was neg except as above. Objective - Vital Signs/Intake and Output Vital Signs (last 24 hours): Temp Pulse Resp BP Pulse Ox 98.6 F 78 20 102/66 95 02/12/18 06:00 02/12/18 06:00 02/12/18 06:00 02/12/18 06:00 02/12/18 06:00 Intake and Output: 02/12/18 02/12/18 06:59 18:59 Intake Total 2400 Balance 2400 - Medications Medications: Current Medications Levetiracetam 1,000 mg/ Sodium (Chloride) 110 mls @ 460 mls/hr IV Q12 [facility] Last Admin: 02/12/18 09:28 Dose: 460 mls/hr Sodium Chloride (Sodium Chloride 0.9%) 1,000 mls @ 150 mls/hr IV .Q6H40M [facility] Last Admin: 02/12/18 05:49 Dose: 150 mls/hr Insulin Human Lispro (Humalog Med) 0 units SC ACHS [facility] PRN Reason: Protocol Last Admin: 02/12/18 08:00 Dose: Not Given Nicotine (Nicoderm Cq) 1 patch TD DAILY [facility] Last Admin: 02/12/18 09:28 Dose: 1 patch Pantoprazole Sodium (Protonix Ec Tab) 40 mg PO 0600 [facility] Last Admin: 02/12/18 05:48 Dose: 40 mg - Labs Labs: 02/12/18 06:00 02/12/18 06:00 PT 11.0 SECONDS (9.4-12.5) 02/12/18 06:00 INR 0.96 (0.93-1.08) 02/12/18 06:00 APTT 29.3 Seconds (25.1-36.5) 02/10/18 18:30 - Constitutional Appears: Non-toxic, No Acute Distress - Head Exam Head Exam: ATRAUMATIC, NORMAL INSPECTION, NORMOCEPHALIC - Eye Exam Eye Exam: EOMI, Normal appearance, PERRL - ENT Exam ENT Exam: Mucous Membranes Moist, Normal Exam - Neck Exam Neck Exam: Full ROM, Normal Inspection - Respiratory Exam Respiratory Exam: Clear to Ausculation Bilateral, NORMAL BREATHING PATTERN - Cardiovascular Exam Cardiovascular Exam: REGULAR RHYTHM, +S1, +S2 - GI/Abdominal Exam GI & Abdominal Exam: Soft, Tenderness, Normal Bowel Sounds. absent: Distended, Guarding, Rigid, Organomegaly - Extremities Exam Extremities Exam: Full ROM, Normal Inspection. absent: Pedal Edema - Back Exam Back Exam: NORMAL INSPECTION - Neurological Exam Neurological Exam: Alert, Awake, Oriented x3 - Psychiatric Exam Psychiatric exam: Normal Affect, Normal Mood - Skin Skin Exam: Dry, Intact, Normal Color, Warm Assessment and Plan - Assessment and Plan (Free Text) Assessment: This is a 37yF presenting for a witnessed seizure. 1. Elevated LFTs 2. Dilated CBD 3. Seizure 4. Hx of polysubstance abuse Plan: -Continue supportive care -Neuro workup by primary team -Elevated LFT's may be multifactorial with hx of cholecystectomy and chronic pain medication, secondary to seizure activity -MRCP with no stones or mass -Monitor LFTs and INR -Avoid narcotics -Autoimmune pending and hepatitis neg -Pt can follow up outpt for dilated CBD, no plan for GI EUS at this time -Please call with any questions or concerns <Becky Ace - Last Filed: 02/12/18 11:32> Objective - Vital Signs/Intake and Output Vital Signs (last 24 hours): Temp Pulse Resp BP Pulse Ox 98.6 F 78 20 102/66 95 02/12/18 06:00 02/12/18 06:00 02/12/18 06:00 02/12/18 06:00 02/12/18 06:00 Intake and Output: 02/12/18 02/12/18 06:59 18:59 Intake Total 2400 Balance 2400 - Medications Medications: Current Medications Levetiracetam 1,000 mg/ Sodium (Chloride) 110 mls @ 460 mls/hr IV Q12 [facility] Last Admin: 02/12/18 09:28 Dose: 460 mls/hr Sodium Chloride (Sodium Chloride 0.9%) 1,000 mls @ 150 mls/hr IV .Q6H40M [facility] Last Admin: 02/12/18 05:49 Dose: 150 mls/hr Insulin Human Lispro (Humalog Med) 0 units SC ACHS [facility] PRN Reason: Protocol Last Admin: 02/12/18 08:00 Dose: Not Given Nicotine (Nicoderm Cq) 1 patch TD DAILY [facility] Last Admin: 02/12/18 09:28 Dose: 1 patch Pantoprazole Sodium (Protonix Ec Tab) 40 mg PO 0600 [facility] Last Admin: 02/12/18 05:48 Dose: 40 mg - Labs Labs: 02/12/18 06:00 02/12/18 06:00 PT 11.0 SECONDS (9.4-12.5) 02/12/18 06:00 INR 0.96 (0.93-1.08) 02/12/18 06:00 APTT 29.3 Seconds (25.1-36.5) 02/10/18 18:30 Attending/Attestation - Attestation I have personally seen and examined this patient.: Yes I have fully participated in the care of the patient.: Yes I have reviewed all pertinent clinical information, including history, physical exam and plan: Yes Notes (Text): 02/12/18 11:30 Patient seen at bedside. This is a 37 year old female with h/o heroin abuse, h/ o cholecystectomy admitted after seizure, also with chronic RUQ pain, dilated bile duct, and elevated lfts. [facility] that showed no stone and mass. Dilated CBD may be related to post cholecystectomy state and opiate abuse. LFt downtrending. No emergent GI work up is necessary. Can follow up as outpatient for futher care. Thank you for letting us participate in the care of your patient
[2018-02-12 11:13] LABS: IMMUNOGLOBULIN G 903.3 mg/dL (700.0-1600.0)
[2018-02-12 11:14] LABS: IMMUNOGLOBULIN A < 40.0 mg/dL (70.0-400.0)
[2018-02-12 11:42] LABS: IMMUNOGLOBULIN M 464.3 mg/dL (40.0-230.0)
[2018-02-12 12:03] LABS: FERRITIN 40.5 ng/mL
--- NOTE | 2018-02-12 16:24 | CP.PCM.DIS ---
<Wisam Kent - Last Filed: 02/12/18 16:20> Provider - Provider Date of Admission: 02/10/18 21:48 Attending physician: Scott Abarca MD Consults: Dr. Maciel: GI Dr. Argueta: Neurology Time Spent in preparation of Discharge (in minutes): 45 Hospital Course - Lab Results Lab Results: Micro Results 02/10/18 22:09 Blood-Venous Blood Culture - Preliminary NO GROWTH AFTER 24 HOURS 02/10/18 22:09 Blood-Venous Blood Culture - Preliminary NO GROWTH AFTER 24 HOURS Most Recent Lab Values WBC 10.1 10^3/ul (4.5-11.0) D 02/12/18 06:00 RBC 4.91 10^6/uL (3.5-6.1) 02/12/18 06:00 Hgb 14.4 g/dL (12.0-16.0) D 02/12/18 06:00 Hct 43.4 % (36.0-48.0) 02/12/18 06:00 MCV 88.4 fl (80.0-105.0) 02/12/18 06:00 MCH 29.3 pg (25.0-35.0) 02/12/18 06:00 MCHC 33.2 g/dl (31.0-37.0) 02/12/18 06:00 RDW 14.4 % (11.5-14.5) 02/12/18 06:00 Plt Count 174 10^3/uL (120.0-450.0) 02/12/18 06:00 MPV 11.9 fl (7.0-11.0) H 02/12/18 06:00 Gran % 76.1 % (50.0-68.0) H 02/10/18 18:30 Lymph % (Auto) 17.1 % (22.0-35.0) L 02/10/18 18:30 [place] % (Auto) 5.3 % (1.0-6.0) 02/10/18 18:30 Eos % (Auto) 1.4 % (1.5-5.0) L 02/10/18 18:30 Baso % (Auto) 0.1 % (0.0-3.0) 02/10/18 18:30 Gran # 8.93 (1.4-6.5) H 02/10/18 18:30 Lymph # (Auto) 2.0 (1.2-3.4) 02/10/18 18:30 [place] # (Auto) 0.6 (0.1-0.6) 02/10/18 18:30 Eos # (Auto) 0.2 (0.0-0.7) 02/10/18 18:30 Baso # (Auto) 0.01 K/mm3 (0.0-2.0) 02/10/18 18:30 Retic Count 1.82 % (0.5-1.5) H 02/11/18 13:00 PT 11.0 SECONDS (9.4-12.5) 02/12/18 06:00 INR 0.96 (0.93-1.08) 02/12/18 06:00 APTT 29.3 Seconds (25.1-36.5) 02/10/18 18:30 Sodium 142 mmol/L (132-148) 02/12/18 06:00 Potassium 3.2 mmol/L (3.6-5.0) L 02/12/18 06:00 Chloride 112 mmol/L (98-107) H 02/12/18 06:00 Carbon Dioxide 25 mmol/L (21-33) 02/12/18 06:00 Anion Gap 9 (10-20) L 02/12/18 06:00 BUN 9 mg/dL (7-21) 02/12/18 06:00 Creatinine 0.6 mg/dl (0.7-1.2) L 02/12/18 06:00 Est GFR ( Amer) > 60 02/12/18 06:00 Est GFR (Non-Af Amer) > 60 02/12/18 06:00 POC Glucose (mg/dL) 202 mg/dL (65-110) H 02/12/18 11:14 Random Glucose 104 mg/dL (70-110) 02/12/18 06:00 Hemoglobin A1c 12.6 % (4.2-6.5) H 02/10/18 18:30 Calcium 8.9 mg/dL (8.4-10.5) 02/12/18 06:00 Phosphorus 2.7 mg/dL (2.5-4.5) 02/10/18 18:30 Magnesium 2.0 mg/dL (1.7-2.2) 02/10/18 18:30 Iron 83 ug/dL (45-180) 02/12/18 06:00 TIBC 250 ug/dL (265-497) L 02/12/18 06:00 % Saturation 33 % (20-55) 02/12/18 06:00 Ferritin 40.5 ng/mL 02/12/18 06:00 Total Bilirubin 1.4 mg/dL (0.2-1.3) H 02/12/18 06:00 AST 66 U/L (14-36) H D 02/12/18 06:00 ALT 65 U/L (7-56) H 02/12/18 06:00 Alkaline Phosphatase 191 U/L (38-126) H D 02/12/18 06:00 Total Creatine Kinase 25 U/L (35-230) L 02/10/18 18:30 Total Protein 5.7 g/dL (5.8-8.3) L 02/12/18 06:00 Albumin 3.0 g/dL (3.0-4.8) 02/12/18 06:00 Globulin 2.8 gm/dL 02/12/18 06:00 Albumin/Globulin Ratio 1.1 (1.1-1.8) 02/12/18 06:00 Procalcitonin 0.05 NG/ML (0.19-0.49) L 02/12/18 06:00 TSH 3rd Generation 1.69 mIU/mL (0.46-4.68) 02/11/18 13:00 Urine Color Yellow (YELLOW) 02/10/18 18:50 Urine Appearance Clear (CLEAR) 02/10/18 18:50 Urine pH 6.0 (4.7-8.0) 02/10/18 18:50 Ur Specific [place] >= 1.030 (1.005-1.035) 02/10/18 18:50 Urine Protein Trace mg/dL (<30 mg/dL) H 02/10/18 18:50 Urine Glucose (UA) 100 mg/dL (NEGATIVE) H 02/10/18 18:50 Urine Ketones Negative mg/dL (NEGATIVE) 02/10/18 18:50 Urine Blood Negative (NEGATIVE) 02/10/18 18:50 Urine Nitrate Negative (NEGATIVE) 02/10/18 18:50 Urine Bilirubin Negative (NEGATIVE) 02/10/18 18:50 Urine Urobilinogen 4.0 E.U./dL (<1 E.U./dL) H 02/10/18 18:50 Ur Leukocyte Esterase Negative Preet/uL (NEGATIVE) 02/10/18 18:50 Urine RBC 0 - 2 /hpf (0-2) 02/10/18 18:50 Urine WBC 0 - 2 /hpf (0-6) 02/10/18 18:50 Ur Epithelial Cells 1 - 3 /hpf (0-5) 02/10/18 18:50 Urine Bacteria Small (NEG) 02/10/18 18:50 Salicylates < 1 mg/dL (2.0-20.0) L 02/10/18 18:30 Urine Opiates Screen Positive (NEGATIVE) H 02/10/18 18:50 Urine Methadone Screen Negative (NEGATIVE) 02/10/18 18:50 Acetaminophen < 10.0 ug/ml (10.0-20.0) L 02/10/18 18:30 Ur Barbiturates Screen Negative (NEGATIVE) 02/10/18 18:50 Ur Phencyclidine Scrn Negative (NEGATIVE) 02/10/18 18:50 Ur Amphetamines Screen Negative (NEGATIVE) 02/10/18 18:50 U Benzodiazepines Scrn Positive (NEGATIVE) 02/10/18 18:50 U Oth Cocaine Metabols Negative (NEGATIVE) 02/10/18 18:50 U Cannabinoids Screen Negative (NEGATIVE) 02/10/18 18:50 Alcohol, Quantitative < 10 mg/dL (0-10) 02/10/18 18:30 IgG 903.3 mg/dL (700.0-1600.0) 02/12/18 06:00 IgA < 40.0 mg/dL (70.0-400.0) L 02/12/18 06:00 IgM 464.3 mg/dL (40.0-230.0) H 02/12/18 06:00 Hepatitis A IgM Ab Negative (NEGATIVE) 02/11/18 13:00 Hep Bs Antigen Negative (NEGATIVE) 02/11/18 13:00 Hep B Core IgM Ab Negative (NEGATIVE) 02/11/18 13:00 Hepatitis C Antibody Negative (NEGATIVE) 02/11/18 13:00 HIV 1&2 Ag/Ab, 4th Gen Nonreactive (Nonreactive) 02/11/18 13:00 - Hospital Course Hospital Course: 37 year old female Past medical history of celiac disease, heroin abuse and diabetes brought into ED accompanied by girlfriend's mom who states that the patient had a seizure episode earlier today. Recently d/c on Thursday 02/08 from [facility] for bile duct issues and had received Dilaudid there for her pain. C/o depression after girlfriend broke up with her. 02/11: suspected doing heroin in her room, flushed two bags of powder down the toilet 02/12: patient less somnolent, signed consent for records from [facility]. GI reviewed records, stated that she needs outpatient follow up. Patient's EEG was read, was normal. Dr. Argueta stated that patient can be sent home on Keppra 500 BID. GI told patient to follow up outpatient. Patient was stable for discharge. Discharge Exam - Head Exam Head Exam: ATRAUMATIC, NORMAL INSPECTION, NORMOCEPHALIC - Eye Exam Eye Exam: EOMI, Normal appearance, PERRL Pupil Exam: NORMAL ACCOMODATION, PERRL - Respiratory Exam Respiratory Exam: Clear to PA & Lateral, NORMAL BREATHING PATTERN, UNREMARKABLE - Cardiovascular Exam Cardiovascular Exam: REGULAR RHYTHM, RRR - GI/Abdominal Exam GI & Abdominal Exam: Normal Bowel Sounds, Unremarkable - Neurological Exam Neurological exam: Alert, CN II-XII Intact, Normal Gait, Oriented x3, Reflexes Normal - Psychiatric Exam Psychiatric exam: Normal Affect, Normal Mood - Skin Skin Exam: Dry, Intact, Normal Color, Warm Discharge Plan - Discharge Medications Prescriptions: levETIRAcetam [Keppra] 500 mg PO BID #60 tab - Follow Up Plan Condition: FAIR Disposition: HOME/ ROUTINE Patient education suggested?: Yes Additional Instructions: 1.) Please take your new seizure medication as prescribed 2.) Please follow up with Dr. Bertha Argueta MD, neurology 3.) Please folllow up outpatient with your GI Doctor 4.) Please follow up with our clinic here at [facility] 5.) If your symptoms return or worsen, please return to the ED as soon as possible <Scott Abarca - Last Filed: 02/12/18 17:14> Provider - Provider Date of Admission: 02/10/18 21:48 Attending physician: Scott Abarca MD Hospital Course - Lab Results Lab Results: Micro Results 02/10/18 22:09 Blood-Venous Blood Culture - Preliminary NO GROWTH AFTER 24 HOURS 02/10/18 22:09 Blood-Venous Blood Culture - Preliminary NO GROWTH AFTER 24 HOURS Most Recent Lab Values WBC 10.1 10^3/ul (4.5-11.0) D 02/12/18 06:00 RBC 4.91 10^6/uL (3.5-6.1) 02/12/18 06:00 Hgb 14.4 g/dL (12.0-16.0) D 02/12/18 06:00 Hct 43.4 % (36.0-48.0) 02/12/18 06:00 MCV 88.4 fl (80.0-105.0) 02/12/18 06:00 MCH 29.3 pg (25.0-35.0) 02/12/18 06:00 MCHC 33.2 g/dl (31.0-37.0) 02/12/18 06:00 RDW 14.4 % (11.5-14.5) 02/12/18 06:00 Plt Count 174 10^3/uL (120.0-450.0) 02/12/18 06:00 MPV 11.9 fl (7.0-11.0) H 02/12/18 06:00 Gran % 76.1 % (50.0-68.0) H 02/10/18 18:30 Lymph % (Auto) 17.1 % (22.0-35.0) L 02/10/18 18:30 [place] % (Auto) 5.3 % (1.0-6.0) 02/10/18 18:30 Eos % (Auto) 1.4 % (1.5-5.0) L 02/10/18 18:30 Baso % (Auto) 0.1 % (0.0-3.0) 02/10/18 18:30 Gran # 8.93 (1.4-6.5) H 02/10/18 18:30 Lymph # (Auto) 2.0 (1.2-3.4) 02/10/18 18:30 [place] # (Auto) 0.6 (0.1-0.6) 02/10/18 18:30 Eos # (Auto) 0.2 (0.0-0.7) 02/10/18 18:30 Baso # (Auto) 0.01 K/mm3 (0.0-2.0) 02/10/18 18:30 Retic Count 1.82 % (0.5-1.5) H 02/11/18 13:00 PT 11.0 SECONDS (9.4-12.5) 02/12/18 06:00 INR 0.96 (0.93-1.08) 02/12/18 06:00 APTT 29.3 Seconds (25.1-36.5) 02/10/18 18:30 Sodium 142 mmol/L (132-148) 02/12/18 06:00 Potassium 3.2 mmol/L (3.6-5.0) L 02/12/18 06:00 Chloride 112 mmol/L (98-107) H 02/12/18 06:00 Carbon Dioxide 25 mmol/L (21-33) 02/12/18 06:00 Anion Gap 9 (10-20) L 02/12/18 06:00 BUN 9 mg/dL (7-21) 02/12/18 06:00 Creatinine 0.6 mg/dl (0.7-1.2) L 02/12/18 06:00 Est GFR ( Amer) > 60 02/12/18 06:00 Est GFR (Non-Af Amer) > 60 02/12/18 06:00 POC Glucose (mg/dL) 202 mg/dL (65-110) H 02/12/18 11:14 Random Glucose 104 mg/dL (70-110) 02/12/18 06:00 Hemoglobin A1c 12.6 % (4.2-6.5) H 02/10/18 18:30 Calcium 8.9 mg/dL (8.4-10.5) 02/12/18 06:00 Phosphorus 2.7 mg/dL (2.5-4.5) 02/10/18 18:30 Magnesium 2.0 mg/dL (1.7-2.2) 02/10/18 18:30 Iron 83 ug/dL (45-180) 02/12/18 06:00 TIBC 250 ug/dL (265-497) L 02/12/18 06:00 % Saturation 33 % (20-55) 02/12/18 06:00 Ferritin 40.5 ng/mL 02/12/18 06:00 Total Bilirubin 1.4 mg/dL (0.2-1.3) H 02/12/18 06:00 AST 66 U/L (14-36) H D 02/12/18 06:00 ALT 65 U/L (7-56) H 02/12/18 06:00 Alkaline Phosphatase 191 U/L (38-126) H D 02/12/18 06:00 Total Creatine Kinase 25 U/L (35-230) L 02/10/18 18:30 Total Protein 5.7 g/dL (5.8-8.3) L 02/12/18 06:00 Albumin 3.0 g/dL (3.0-4.8) 02/12/18 06:00 Globulin 2.8 gm/dL 02/12/18 06:00 Albumin/Globulin Ratio 1.1 (1.1-1.8) 02/12/18 06:00 Procalcitonin 0.05 NG/ML (0.19-0.49) L 02/12/18 06:00 TSH 3rd Generation 1.69 mIU/mL (0.46-4.68) 02/11/18 13:00 Urine Color Yellow (YELLOW) 02/10/18 18:50 Urine Appearance Clear (CLEAR) 02/10/18 18:50 Urine pH 6.0 (4.7-8.0) 02/10/18 18:50 Ur Specific [place] >= 1.030 (1.005-1.035) 02/10/18 18:50 Urine Protein Trace mg/dL (<30 mg/dL) H 02/10/18 18:50 Urine Glucose (UA) 100 mg/dL (NEGATIVE) H 02/10/18 18:50 Urine Ketones Negative mg/dL (NEGATIVE) 02/10/18 18:50 Urine Blood Negative (NEGATIVE) 02/10/18 18:50 Urine Nitrate Negative (NEGATIVE) 02/10/18 18:50 Urine Bilirubin Negative (NEGATIVE) 02/10/18 18:50 Urine Urobilinogen 4.0 E.U./dL (<1 E.U./dL) H 02/10/18 18:50 Ur Leukocyte Esterase Negative Preet/uL (NEGATIVE) 02/10/18 18:50 Urine RBC 0 - 2 /hpf (0-2) 02/10/18 18:50 Urine WBC 0 - 2 /hpf (0-6) 02/10/18 18:50 Ur Epithelial Cells 1 - 3 /hpf (0-5) 02/10/18 18:50 Urine Bacteria Small (NEG) 02/10/18 18:50 Salicylates < 1 mg/dL (2.0-20.0) L 02/10/18 18:30 Urine Opiates Screen Positive (NEGATIVE) H 02/10/18 18:50 Urine Methadone Screen Negative (NEGATIVE) 02/10/18 18:50 Acetaminophen < 10.0 ug/ml (10.0-20.0) L 02/10/18 18:30 Ur Barbiturates Screen Negative (NEGATIVE) 02/10/18 18:50 Ur Phencyclidine Scrn Negative (NEGATIVE) 02/10/18 18:50 Ur Amphetamines Screen Negative (NEGATIVE) 02/10/18 18:50 U Benzodiazepines Scrn Positive (NEGATIVE) 02/10/18 18:50 U Oth Cocaine Metabols Negative (NEGATIVE) 02/10/18 18:50 U Cannabinoids Screen Negative (NEGATIVE) 02/10/18 18:50 Alcohol, Quantitative < 10 mg/dL (0-10) 02/10/18 18:30 IgG 903.3 mg/dL (700.0-1600.0) 02/12/18 06:00 IgA < 40.0 mg/dL (70.0-400.0) L 02/12/18 06:00 IgM 464.3 mg/dL (40.0-230.0) H 02/12/18 06:00 Hepatitis A IgM Ab Negative (NEGATIVE) 02/11/18 13:00 Hep Bs Antigen Negative (NEGATIVE) 02/11/18 13:00 Hep B Core IgM Ab Negative (NEGATIVE) 02/11/18 13:00 Hepatitis C Antibody Negative (NEGATIVE) 02/11/18 13:00 HIV 1&2 Ag/Ab, 4th Gen Nonreactive (Nonreactive) 02/11/18 13:00 Attending/Attestation - Attestation I have personally seen and examined this patient.: Yes I have fully participated in the care of the patient.: Yes I have reviewed all pertinent clinical information, including history, physical exam and plan: Yes Notes (Text): 02/12/18 17:11 Attending note; Patient seen and examined with resident. Patient is a 87-year-old female with a past medical history of diabetes, hypertension, drug abuse is admitted with mental status and possible seizure disorder. CT head is negative. Neurology evaluation appreciated. EEG is normal. Patient was using drugs in the bathroom yesterday as per nurse. Patient denies drug abuse. Elevated LFTs; improving slowly. Hepatitis profile and HIV negative. LFT is improving. MRCP at [facility] did not show any CBD stone. GI evaluation appreciated. Patient was cleared for discharge with outpatient follow-up. Case discussed with neurologist in detail. Cleared for discharge with by omar Rothman. Diabetes; currently on insulin sliding scale. Uncontrolled diabetes. A1c is 12.6. Advised to continue monitor FS closely. Dietary education given. Patient takes insulin at home. She has supplies at home. Prognosis is poor secondary to drug abuse and noncompliance with follow-up. Upon discharge the patient will follow-up with PMD in [place].
[2018-02-13] MEDS: Sodium Chloride 0.9% 1,000 ML IV SCH ×3 (00:35→05:05)
[2018-02-13 00:45] VITALS: TEMP 98
[2018-02-13] MEDS: Pantoprazole 40 mg EC Tab PO SCH (05:05)
[2018-02-13 06:26] VITALS: BP 124/89; PULSE 73; O2SAT 97
[2018-02-13 06:50] LABS: MEAN CELL VOLUME 88.7 fl (80.0-105.0); MEAN CORPUSCULAR HEMOGLOBIN 28.8 pg (25.0-35.0); MEAN CORPUSCULAR HGB CONC 32.5 g/dl (31.0-37.0); RBC 4.23 10^6/uL (3.5-6.1); RED CELL DISTRIBUTION WIDTH 14.5 % (11.5-14.5); WHITE BLOOD COUNT 8.7 10^3/ul (4.5-11.0)
[2018-02-13 06:54] LABS: CERULOPLASMIN 26 mg/dL (18-53)
[2018-02-13 06:54] LABS: HEMOGLOBIN 12.2 g/dL (12.0-16.0)
[2018-02-13 07:47] LABS: ALB/GLOB RATIO 1.1 (1.1-1.8); ALBUMIN 2.6 g/dL (3.0-4.8); ALT/SGPT 55 U/L (7-56); AST/SGOT 38 U/L (14-36); BLOOD UREA NITROGEN 3 mg/dL (7-21); CALCIUM 8.8 mg/dL (8.4-10.5); GFR AFRICAN-AMERICAN > 60; GFR NON-AFRICAN AMERICAN > 60
[2018-02-13] MEDS: Insulin Lispro (humaLOG) MEDIUM Coverage SC SCH (08:58)
[2018-02-13] MEDS: levETIRAcetam 1,000 MG in Sodium Chloride 0.9% 100 ML IV SCH (10:09)
--- NOTE | 2018-02-13 19:35 | CP.PCM.PN ---
<Wisam Kent - Last Filed: 02/13/18 19:35> Subjective - Date & Time of Evaluation Date of Evaluation: 02/13/18 Time of Evaluation: 07:00 - Subjective Subjective: Medicine progress note: Dr. Abarca Patient seen and examined at bedside. Patient was clear for discharge yesterday but did not have a way to get home, so was kept overnight to avoid unsafe discharge. Patient denies any new complaints today, is ready for discharge. Objective - Vital Signs/Intake and Output Vital Signs (last 24 hours): Temp Pulse Resp BP Pulse Ox 98 F 73 20 124/89 97 02/13/18 06:00 02/13/18 06:00 02/13/18 06:00 02/13/18 06:00 02/13/18 06:00 - Labs Labs: 02/13/18 06:00 02/13/18 06:00 PT 11.0 SECONDS (9.4-12.5) 02/12/18 06:00 INR 0.96 (0.93-1.08) 02/12/18 06:00 APTT 29.3 Seconds (25.1-36.5) 02/10/18 18:30 - Constitutional Appears: Well - Head Exam Head Exam: ATRAUMATIC, NORMAL INSPECTION, NORMOCEPHALIC - Eye Exam Eye Exam: EOMI, Normal appearance, PERRL Pupil Exam: NORMAL ACCOMODATION, PERRL - ENT Exam ENT Exam: Mucous Membranes Moist, Normal Exam - Neck Exam Neck Exam: Full ROM, Normal Inspection. absent: Lymphadenopathy - Respiratory Exam Respiratory Exam: Clear to Ausculation Bilateral, NORMAL BREATHING PATTERN - Cardiovascular Exam Cardiovascular Exam: REGULAR RHYTHM, +S1, +S2. absent: Murmur - GI/Abdominal Exam GI & Abdominal Exam: Soft, Normal Bowel Sounds. absent: Tenderness - Extremities Exam Extremities Exam: Full ROM, Normal Capillary Refill, Normal Inspection. absent : Joint Swelling, Pedal Edema - Back Exam Back Exam: NORMAL INSPECTION - Neurological Exam Neurological Exam: Alert, Awake, CN II-XII Intact, Normal Gait, Oriented x3 - Psychiatric Exam Psychiatric exam: Normal Affect, Normal Mood - Skin Skin Exam: Dry, Intact, Normal Color, Warm Assessment and Plan - Assessment and Plan (Free Text) Assessment: 37 year old female with medical history of celiac disease and DM who was brought into ED accompanied by [id number] who states that the patient had a seizure episode earlier today. Patient also has multiple lab abnormalities Seizure - Head CT: Unremarkable - EEG: Normal - Swallow eval: Passed - TSH/Mg/Phos: 1.69/2.0/2.7 - Blood and Urine Cultures: No growth - Neurology: Dr. Argueta * Continue Keppra, get MRI Brain with and without contrast - Seizure precautions - Fall risk - Neurochecks q4 - PT/OT eval - Ativan discontinued Diabetes - RISS Medium - Accuchecks ACHS - Heart Healthy and Moderate CHO diet Elevated LFTs - Abdomen Ultrasound ordered: 1.5 cm hepatic minimally complicated cyst; Gall Bladder not seen - Hepatitis panel ordered Negative - HIV Negative - GI Consult for LFT elevation, ALP elevation, urobilinogen elevation Recommend outpatient follow up after records from [facility] showed no GB stone/obstruction History Celiac Disease - Continue gluten restricted diet History tobacco use - Nicotine patch GI/DVT Prophylaxis - Protonix - SCD's Patient was stable for discharge yesterday, will safely leave today <Scott Abarca - Last Filed: 02/14/18 07:34> Objective - Vital Signs/Intake and Output Vital Signs (last 24 hours): Temp Pulse Resp BP Pulse Ox 98 F 73 20 124/89 97 02/13/18 06:00 02/13/18 06:00 02/13/18 06:00 02/13/18 06:00 02/13/18 06:00 - Labs Labs: 02/13/18 06:00 02/13/18 06:00 PT 11.0 SECONDS (9.4-12.5) 02/12/18 06:00 INR 0.96 (0.93-1.08) 02/12/18 06:00 APTT 29.3 Seconds (25.1-36.5) 02/10/18 18:30 Attending/Attestation - Attestation I have personally seen and examined this patient.: Yes I have fully participated in the care of the patient.: Yes I have reviewed all pertinent clinical information, including history, physical exam and plan: Yes Notes (Text): 02/14/18 07:33 Attending note; Patient seen and examined with resident. Patient is a 87-year-old female with a past medical history of diabetes, hypertension, drug abuse is admitted with mental status and possible seizure disorder. CT head is negative. Neurology evaluation appreciated. EEG is normal. Patient was using drugs in the bathroom yesterday as per nurse. Patient denies drug abuse. Elevated LFTs; improving slowly. Hepatitis profile and HIV negative. LFT is improving. MRCP at [facility] did not show any CBD stone. GI evaluation appreciated. Patient was cleared for discharge with outpatient follow-up. Case discussed with neurologist in detail. Cleared for discharge with by mouth Stephan. Diabetes; currently on insulin sliding scale. Uncontrolled diabetes. A1c is 12.6. Advised to continue monitor FS closely. Dietary education given. Patient takes insulin at home. She has supplies at home. Prognosis is poor secondary to drug abuse and noncompliance with follow-up. The patient did not go home yesterday due to [place] and not able to get transportation home. Upon discharge the patient will follow-up with PMD in [place].
== END 2018-02-13 11:05 | disposition home or self-care (01) | DRG 889 ==
LOC: ED 17:48 → ERH 21:48 → 2RNO 23:57
PROVIDERS: ADMIT Internal Medicine; ATTEND Internal Medicine
DX: G40.909 Epilepsy, unspecified, not intractable, without status epilepticus (principal); E10.65 Type 1 diabetes mellitus with hyperglycemia; K75.9 Inflammatory liver disease, unspecified; K90.0 Celiac disease; I10 Essential (primary) hypertension; K83.8 Other specified diseases of biliary tract; Z53.20 Procedure and treatment not carried out because of patient's decision for unspecified reasons; F17.210 Nicotine dependence, cigarettes, uncomplicated; Z90.49 Acquired absence of other specified parts of digestive tract; Z91.19 Patient's noncompliance with other medical treatment and regimen; Z91.81 History of falling